=== PATIENT | male | born 1945 | race Caucasian/White ===

== ENCOUNTER 2018-03-13 04:56 | Emergency (ER) | payer MEDICARE, OTHER ==
[~2018-03-13] VITALS: Ht 165.1 cm; Wt 70.5 kg
[2018-03-13 05:18] LABS: GLUCOSE,POINT OF CARE 109 MG/DL (70-110)
[2018-03-13] MEDS ORDERED: TRAM50TA4 PO (05:29)
[2018-03-13] MEDS ORDERED: SITA100 PO (05:29)
[2018-03-13] MEDS ORDERED: METF-960 PO (05:29)
[2018-03-13] MEDS ORDERED: FURO40 PO (05:29)
[2018-03-13] MEDS ORDERED: NIFE60TA71 PO (05:29)
[2018-03-13] MEDS ORDERED: CLON.3 PO (05:29)
[2018-03-13] MEDS ORDERED: LOSA50TA25 PO (05:29)
[2018-03-13] MEDS ORDERED: OMEP20 PO (05:29)
[2018-03-13] MEDS ORDERED: ATOR10TA84 PO (05:29)
[2018-03-13] MEDS ORDERED: CYCLOBENZAPRINE HCL 10 MG TABLET PO ONE (06:15)
[2018-03-13] MEDS ORDERED: KETOROLAC TROMETHAMINE 60 MG/2 ML VIAL IM ONE (06:15)
[2018-03-13 06:44] VITALS: BP 145/80
== END 2018-03-13 07:22 | disposition home or self-care (01) ==
LOC: EMS 04:57
DX: M43.6 Torticollis (principal); E11.9 Type 2 diabetes mellitus without complications; I10 Essential (primary) hypertension; Z98.890 Other specified postprocedural states; Z79.891 Long term (current) use of opiate analgesic; Z79.84 Long term (current) use of oral hypoglycemic drugs; Z79.899 Other long term (current) drug therapy
CPT/HCPCS: 72040; 82962; 96372; 99284; J1885

== ENCOUNTER 2018-04-11 04:04 | Emergency (ER) | payer MEDICARE ==
[~2018-04-11] VITALS: Ht 172.7 cm; Wt 70.5 kg
[~2018-04-11 04:04] MED LIST: ATOR10TA84 PO; CLON.3 PO; FURO40 PO; LOSA50TA64 PO; METF-960 PO; NIFE60TA71 PO; OMEP20 PO; SITA100 PO; TRAM50TA4 PO
[2018-04-11 04:34] LABS: GLUCOSE,POINT OF CARE 214 MG/DL (70-110)
[2018-04-11] MEDS ORDERED: KETOROLAC TROMETHAMINE 30 MG/ML VIAL IM ONE (06:15)
[2018-04-11 07:31] VITALS: BP 148/63
== END 2018-04-11 07:53 | disposition home or self-care (01) ==
LOC: EMS 04:04
DX: M50.30 Other cervical disc degeneration, unspecified cervical region (principal); M51.36 Other intervertebral disc degeneration, lumbar region; M85.88 Other specified disorders of bone density and structure, other site; I10 Essential (primary) hypertension; E11.9 Type 2 diabetes mellitus without complications; Z79.84 Long term (current) use of oral hypoglycemic drugs
CPT/HCPCS: 72040; 72100; 82962; 96372; 99283; J1885